=== PATIENT | female | born 1970 | race Caucasian/White ===

== ENCOUNTER 2017-01-10 17:51 | Inpatient (IN) | payer MEDICARE, OTHER ==
[~2017-01-10] VITALS: Ht 172.7 cm; Wt 120.9 kg
[2017-01-10 19:22] LABS: HEMOGLOBIN 14.9 gm/dl (12.3-15.3); RED BLOOD COUNT 5.51 M/UL (4.00-5.10); WHITE BLOOD COUNT 14.3 K/UL (4.5-11.0)
[2017-01-10 19:44] LABS: BUN/CREATININE RATIO 13 (0-10)
[2017-01-11] MEDS ORDERED: METFORMIN HCL1000 MG PO (00:36)
[2017-01-11] MEDS ORDERED: PROTONIX40 MG PO (00:36)
[2017-01-11] MEDS ORDERED: PROZAC20 MG PO (00:37)
[2017-01-11] MEDS ORDERED: LISINOPRIL10 MG PO (00:37)
[2017-01-11] MEDS ORDERED: NOVOLOG 10100 UNITS1 SQ (00:37)
[2017-01-11] MEDS ORDERED: ALPRAZOLAM0.5 MG PO (00:38)
[2017-01-11] MEDS ORDERED: TOUJEO SQ (00:39)
[2017-01-11 07:21] LABS: HEMOGLOBIN 13.5 gm/dl (12.3-15.3); RED BLOOD COUNT 4.99 M/UL (4.00-5.10)
[2017-01-11 07:23] LABS: WHITE BLOOD COUNT 10.4 K/UL (4.5-11.0)
--- NOTE | 2017-01-11 09:48 | NUR ---
SPOKEN WITH DR. BOYER R/T PATIENT REQUESTING NAIL BE REMOVED TODAY AND WANTS TO GO HOME TODAY IF SURGERY NOT DONE THIS MORNING. DR. BOYER ACKNOWELEDGED AND WILL BE ABLE TO SEE PATIENT LATER.
--- NOTE | 2017-01-11 09:50 | NUR ---
INFORMED PATIENT OF DR. BOYER PLAN AND DR. LEAHY AND SHE WILL WANTED TO LEAVE TODAY
--- NOTE | 2017-01-11 10:15 | NUR ---
PROVIDED PATIENT EDUCATION R/T AMA, PATIENT CONDITION AND SITUATION. PATIENT SIGNED AMA FORM AND VERB UNDERSTANDING OF THE ABOVE.
== END 2017-01-11 10:02 | disposition left against medical advice (07) | DRG 603 ==
LOC: ER1 17:51 → MED SURG 4 20:24 → ZEROF 20:24 → MED SURG 4 23:19
PROVIDERS: Nurse Practitioner Family; ADMIT Internal Medicine
DX: L03.116 Cellulitis of left lower limb (principal); S91.342A Puncture wound with foreign body, left foot, initial encounter; I10 Essential (primary) hypertension; E11.9 Type 2 diabetes mellitus without complications; K21.9 Gastro-esophageal reflux disease without esophagitis; F17.210 Nicotine dependence, cigarettes, uncomplicated; W22.09XA Striking against other stationary object, initial encounter; Z79.84 Long term (current) use of oral hypoglycemic drugs; Z79.4 Long term (current) use of insulin; Y92.019 Unspecified place in single-family (private) house as the place of occurrence of the external cause
CPT/HCPCS: 36415; 73630; 80053; 81001; 82962; 84703; 85025; 85027; 87040; 87086; 90714; 96365; 96366; 96367; 99284; J2543; J3370; J7050; J7070

== ENCOUNTER 2017-02-12 17:52 | Emergency (ER) | payer MEDICARE, OTHER ==
[~2017-02-12 17:52] MED LIST: ALPRAZOLAM0.5 MG PO; LISINOPRIL10 MG PO; METFORMIN HCL1000 MG PO; NOVOLOG 10100 UNITS1 SQ; PROTONIX40 MG PO; PROZAC20 MG PO; TOUJEO SQ
== END 2017-02-12 20:40 | disposition left against medical advice (07) ==
LOC: ER1 17:52
DX: S92.002A Unspecified fracture of left calcaneus, initial encounter for closed fracture (principal); E11.9 Type 2 diabetes mellitus without complications; X58.XXXA Exposure to other specified factors, initial encounter; Z88.0 Allergy status to penicillin; Z88.8 Allergy status to other drugs, medicaments and biological substances
CPT/HCPCS: 73610; 73630; 73700; 99283